=== PATIENT | female | born 1980 | race Two or more races ===

== ENCOUNTER 2025-09-03 23:35 | Emergency (ER) | payer MEDICAID, OTHER ==
[~2025-09-03] VITALS: Ht 157.5 cm; Wt 65.9 kg
[2025-09-04] MEDS ORDERED: SODIUM CHLORIDE 0.9% 1,000 ML IV ONE ×2
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
[2025-09-04] MEDS: LACTATED RINGER'S 1,000 ML IV ONE ×2 (00:15)
[2025-09-04] MEDS: TETANUS-DIPTH-ACEL PERTUSSIS 0.5ML SYR Tdap IM ONE (00:15)
[2025-09-04] MEDS: HYDROcodone-ACET 5/325MG TAB PO ONE (00:26)
[2025-09-04] MEDS: SILVER SULFADIAZINE 1 % TOPICAL CREAM 50GM TOP ONE (00:28)
[2025-09-04] MEDS: ceFAZolin 1GM/50ML 50 ML IV ONE (00:28)
[2025-09-04 00:46] LABS: Hematocrit 36.8 % (36.0-46.0); Hemoglobin 12.5 g/dL (12.2-16.2); Mean Corpuscular Hemoglobin 28.8 pg (28.0-32.0); Mean Corpuscular Volume 85.1 fL (80.0-100.0); Nucleated Red Blood Cells % 0.1 %
[2025-09-04 01:00] LABS: Alanine Aminotransferase 37 U/L (7-40); Albumin 4.0 g/dL (3.2-4.8); Alkaline Phosphatase 59 U/L (46-116); Anion Gap 11 (5-15); BUN/Creatinine Ratio 18.7 (10.0-20.0); Bilirubin, Total 0.4 mg/dL (0.2-1.0); Blood Urea Nitrogen 14 mg/dL (9-23); Calcium 8.9 mg/dL (8.7-10.4); Carbon Dioxide 22 mmol/L (20-31); Chloride 107 mmol/L (98-107); Potassium 3.9 mmol/L (3.5-5.1); Sodium 140 mmol/L (136-145); Total Protein 6.6 g/dL (5.7-8.2)
[2025-09-04 01:01] LABS: Glucose 114 mg/dL (74-106)
[2025-09-04 01:19] VITALS: BP 127/82; PULSE 72; RESP 20; TEMP 98.3; O2SAT 97
== END 2025-09-04 01:31 | disposition short-term general hospital (02) ==
LOC: ER 23:35
DX: T20.20XA Burn of second degree of head, face, and neck, unspecified site, initial encounter (principal); T22.20XA Burn of second degree of shoulder and upper limb, except wrist and hand, unspecified site, initial encounter; T21.21XA Burn of second degree of chest wall, initial encounter; W22.09XA Striking against other stationary object, initial encounter; X08.8XXA Exposure to other specified smoke, fire and flames, initial encounter; Y93.89 Activity, other specified; Y92.89 Other specified places as the place of occurrence of the external cause; Y99.8 Other external cause status
CPT/HCPCS: 36415; 80053; 83605; 85025; 90471; 90715; 96365; 99291; J0690; J7030; 96361; 96372